=== PATIENT | male | born 1935 | race Caucasian/White ===

== ENCOUNTER 2018-03-18 12:44 | Inpatient (IN) | payer MEDICARE ==
[~2018-03-18] VITALS: Ht 182.9 cm; Wt 77.2 kg
[2018-03-18] VITALS (10 sets, daily range): BP systolic 98–136; BP diastolic 46–68
[~2018-03-18 12:44] MED LIST: atropine 0.1mg/ml 10ml syringe ONE; calcium chloride 100 MG/1 ML inj IV ONE
[2018-03-18] MEDS ORDERED: fentaNYL/PF 50MCG/1 ML 2ML syringe IV ONE (13:20)
[2018-03-18 13:41] LABS: BASOPHILS % (AUTO) 0.4 % (0-1); EOSINOPHILS # (AUTO) 0.1 X10'3 (0-0.9); EOSINOPHILS % (AUTO) 1.9 % (0-6); HEMATOCRIT 34.9 % (42.0-52.0); HEMOGLOBIN 12.1 g/dl (14.0-17.9); LYMPHOCYTES # (AUTO) 1.7 X10'3 (1.1-4.8); LYMPHOCYTES % (AUTO) 27.6 % (21-51); MEAN CORPUSCULAR HEMOGLOBIN 33.6 PG (27.0-31.0); MEAN CORPUSCULAR HGB CONC 34.6 % (33.0-36.5); MEAN CORPUSCULAR VOLUME 97.2 FL (78-98); MEAN PLATELET VOLUME 8.4 FL (7.4-10.4); MONOCYTES # (AUTO) 0.6 X10'3 (0-0.9); MONOCYTES % (AUTO) 9.9 % (2-12); NEUTROPHILS # (AUTO) 3.8 X10'3 (1.8-7.7); NEUTROPHILS % (AUTO) 60.2 % (42-75); PLATELET COUNT 123 X10'3 (140-440); WHITE BLOOD COUNT 6.3 X10'3 (4.5-11.0)
[2018-03-18 13:52] LABS: ALANINE AMINOTRANSFERASE 21 U/L (12-78); ALBUMIN 2.8 G/DL (3.4-5.0); ALBUMIN/GLOBULIN RATIO 0.8 (1.1-1.5); ALKALINE PHOSPHATASE 67 IU/L (46-116); ANION GAP 14 (8-16); ASPARTATE AMINO TRANSFERASE 17 U/L (10-37); BILIRUBIN,TOTAL 0.6 MG/DL (0.1-1.0); BLOOD UREA NITROGEN 27 MG/DL (7-18); BUN/CREATININE RATIO 19.1 (5.4-32.0); CALCIUM 7.3 MG/DL (8.5-10.1); CHLORIDE 110 MMOL/L (99-107); CREATININE 1.41 MG/DL (0.60-1.10); GLUCOSE 132 MG/DL (70-104); POTASSIUM 3.9 MMOL/L (3.5-5.1); SODIUM 142 MMOL/L (135-145); TOTAL PROTEIN 6.1 G/DL (6.4-8.2); eGFR 48 ML/MIN
[2018-03-18 13:58] LABS: MAGNESIUM 1.8 MG/DL (1.5-2.4)
[2018-03-18 14:00] LABS: ABG BASE EXCESS -13.3 mmol/L (-2.0-3.0); ABG HCO3 13.2 mmol/L (22.0-26.0); ABG PCO2 (T) 32.9 mmHg (35.0-48.0); ABG PH (T) 7.222 (7.350-7.450); ABG PO2 (T) 269.9 mmHg (83-108); ALLEN'S TEST Positive; FCOHb 0.1 % (0.5-1.5); FLOW 55 L/min; FMetHb 0.1 % (0.3-1.12); FO2Hb 98.8 % (94-100); MINUTE VOLUME 6 L/min; PEEP 5 cm H2O; RESPIRATORY RATE 14 b/min; TIDAL VOLUME 450 mL
[2018-03-18] MEDS ORDERED: rocuronium bromide 100mg/10ml (10mg/ml) injection IV ONE (14:00)
[2018-03-18] MEDS ORDERED: nitroGLYCERIN 0.4mg SUBLingual tab SL ONE (14:00)
[2018-03-18] MEDS ORDERED: heparin, porcine/D5W 25,000 units/250ml premix IV ONE (14:00)
[2018-03-18] MEDS ORDERED: etomidate 2mg/ml inj. ONE (14:00)
[2018-03-18] MEDS ORDERED: heparin 10,000 units/1 ML INJ ONE (14:00)
[2018-03-18] MEDS ORDERED: nitroGLYCERIN in D5W 50mg/250ml (Tridil) infusion IV ONE (14:00)
[2018-03-18] MEDS ORDERED: heparin 10,000 units/1 ML INJ IV ONE ×2 (14:10→15:15)
[2018-03-18] MEDS ORDERED: nitroGLYCERIN 0.4mg SUBLingual tab SL PRN (14:10)
[2018-03-18] MEDS ORDERED: metoprolol tartrate 1mg/ml inj IV ONE (14:10)
[2018-03-18] MEDS ORDERED: normal saline 1000ml 1,000 ML IV ONE ×3 (14:10)
[2018-03-18] MEDS ORDERED: heparin 10,000 units/1 ML INJ IV SCH (14:10)
[2018-03-18] MEDS ORDERED: MIDAZolam 5mg/ml 2ml vial IV ONE ×4 (14:25→17:25)
[2018-03-18] MEDS: nitroGLYCERIN-Tridil 50MG/D5W 250 ML IV PRN ×2 (15:07→15:12)
[2018-03-18] MEDS ORDERED: calcium gluconate inj. 1 GM in normal saline 100ml IV soln 90 ML IV ONE (16:00)
[2018-03-18 16:11] LABS: OXYGEN SATURATION (MIXED VEN) 47.3 % (60-80); PO2 MIXED VENOUS (TEMP COR) 29.1 mmHg (35-46)
[2018-03-18] MEDS ORDERED: magnesium 4gm in 100ml NS 100 ML IV PRN (16:25)
[2018-03-18] MEDS ORDERED: magnesium Cl slow-release 64mg tablet PO PRN (16:25)
[2018-03-18] MEDS ORDERED: magnesium hydroxide 30ml (MOM) UD suspension PO PRN (16:25)
[2018-03-18] MEDS ORDERED: morphine 4 MG/ML inj SYRINge IV PRN ×2 (16:25)
[2018-03-18] MEDS ORDERED: sodium phosphate inj. 15 MMOL in dextrose 5%-water 150 ML IV PRN (16:25)
[2018-03-18] MEDS ORDERED: potassium Cl 20 mEq SR tablet PO PRN ×2 (16:25)
[2018-03-18] MEDS ORDERED: Neutra Phos packet PO PRN (16:25)
[2018-03-18] MEDS ORDERED: ondansetron/PF 4mg/2ml inj IV PRN (16:25)
[2018-03-18] MEDS ORDERED: sodium bicarbonate (8.4%) 1 mEq/ml syringe IV ONE (16:25)
[2018-03-18] MEDS ORDERED: magnesium 1gm/100ml D5W IVPB 50 ML IV PRN (16:25)
[2018-03-18] MEDS ORDERED: acetaminophen 325mg tablet PO PRN ×3 (16:25→20:05)
[2018-03-18] MEDS ORDERED: sodium phosphate inj. 30 MMOL in dextrose 5%-water 250 ML IV PRN (16:25)
[2018-03-18] MEDS ORDERED: sodium bicarbonate (8.4%) inj. 100 MEQ in dextrose 5%-water 1,000 ML IV SCH (16:35)
[2018-03-18 16:45] LABS: PHOSPHORUS 3.7 MG/DL (2.3-4.5)
[2018-03-18] MEDS ORDERED: iohexol 350MG/ML 100ml bottle IV ONE (17:08)
[2018-03-18] MEDS ORDERED: LIDOcaine 1% w/EPI 1:100,000 30ml vial (MDV) ONE (17:08)
[2018-03-18] MEDS ORDERED: iohexol 350 MG/ML 50ML vial IV ONE (17:08)
[2018-03-18] MEDS: sodium bicarbonate (8.4%) inj. 150 MEQ in dextrose 5%-water 1,000 ML IV SCH (17:13)
[2018-03-18] MEDS ORDERED: midazolam 100mg in NS 100ml 100 ML IV PRN ×2 (17:50→19:16)
[2018-03-18] MEDS ORDERED: midazolam 2 mg/2 ml injection ONE (18:14)
[2018-03-18] MEDS ORDERED: DOBUTamine-DoBUTrex 500mg/D5W 250 ML IV ONE (18:20)
[2018-03-18] MEDS ORDERED: fentaNYL in normal saline/PF 1,000mcg/100ml bag IV PRN (19:20)
[2018-03-18] MEDS ORDERED: HYDROcodone/acetaminophen 5mg/325mg tablet PO PRN (20:00)
[2018-03-18] MEDS ORDERED: OXAZEpam 15mg capsule PO PRN (20:05)
[2018-03-18] MEDS ORDERED: HYDROcodone/acetaminophen 10/325mg tab PO PRN (20:05)
[2018-03-18] MEDS ORDERED: proCHLORperazine 10 MG/2 ml inj IV PRN (20:05)
[2018-03-18] MEDS: K, MAG and/or Phos replacement - Verify level? MC SCH (20:40)
[2018-03-18] MEDS: pantoprazole 40 MG vial IV SCH (20:40)
[2018-03-18] MEDS: FENTANYL-0.9 % NACL/PF 100 ML IV PRN (21:25)
[2018-03-19] VITALS (24 sets, daily range): BP systolic 56–122; BP diastolic 30–60
[2018-03-19] MEDS: sodium chloride 0.45% 1,000 ML IV SCH ×2 (00:20→05:41)
[2018-03-19 01:29] LABS: ALANINE AMINOTRANSFERASE 49 U/L (12-78); ALBUMIN 2.8 G/DL (3.4-5.0); ALBUMIN/GLOBULIN RATIO 0.9 (1.1-1.5); ALKALINE PHOSPHATASE 63 IU/L (46-116); ANION GAP 8 (8-16); ASPARTATE AMINO TRANSFERASE 95 U/L (10-37); BILIRUBIN,TOTAL 0.7 MG/DL (0.1-1.0); BLOOD UREA NITROGEN 26 MG/DL (7-18); BUN/CREATININE RATIO 24.8 (5.4-32.0); CALCIUM 7.8 MG/DL (8.5-10.1); CHLORIDE 110 MMOL/L (99-107); CREATININE 1.05 MG/DL (0.60-1.10); GLUCOSE 170 MG/DL (70-104); MAGNESIUM 1.7 MG/DL (1.5-2.4); PHOSPHORUS 3.2 MG/DL (2.3-4.5); SODIUM 139 MMOL/L (135-145); TOTAL CARBON DIOXIDE 20.7 MMOL/L (24-32); eGFR 67 ML/MIN
[2018-03-19] MEDS: sodium bicarbonate (8.4%) inj. 150 MEQ in dextrose 5%-water 1,000 ML IV SCH ×2 (03:19→10:29)
[2018-03-19] MEDS: DOBUTamine 2000 MCG/250ML BAG IV SCH ×2 (03:29→05:48)
[2018-03-19 04:14] LABS: BASOPHILS % (AUTO) 0.2 % (0-1); EOSINOPHILS % (AUTO) 0 % (0-6); HEMATOCRIT 35.1 % (42.0-52.0); LYMPHOCYTES % (AUTO) 10.8 % (21-51); MEAN CORPUSCULAR HEMOGLOBIN 33.4 PG (27.0-31.0); MEAN CORPUSCULAR HGB CONC 34.1 % (33.0-36.5); MEAN CORPUSCULAR VOLUME 97.9 FL (78-98); MEAN PLATELET VOLUME 8.4 FL (7.4-10.4); MONOCYTES # (AUTO) 0.8 X10'3 (0-0.9); MONOCYTES % (AUTO) 8.5 % (2-12); NEUTROPHILS # (AUTO) 7.3 X10'3 (1.8-7.7); NEUTROPHILS % (AUTO) 80.5 % (42-75); PLATELET COUNT 118 X10'3 (140-440); RED BLOOD COUNT 3.59 X10'6 (4.70-6.10); RED CELL DISTRIBUTION WIDTH 13.7 % (11.5-14.5); WHITE BLOOD COUNT 9.1 X10'3 (4.5-11.0)
[2018-03-19] MEDS ORDERED: amiodarone/D5 360MG/200ML BAG 200 ML IV ONE (04:19)
[2018-03-19] MEDS ORDERED: amiodarone 150mg/dext, iso-os 100 ML IV ONE ×2 (04:19→04:20)
[2018-03-19 04:25] LABS: INR 1.1 INR; PROTHROMBIN TIME 11.4 SECONDS (9.0-12.0)
[2018-03-19 04:26] LABS: ALANINE AMINOTRANSFERASE 51 U/L (12-78); ALBUMIN 2.7 G/DL (3.4-5.0); ALBUMIN/GLOBULIN RATIO 0.8 (1.1-1.5); ALKALINE PHOSPHATASE 60 IU/L (46-116); ANION GAP 9 (8-16); ASPARTATE AMINO TRANSFERASE 125 U/L (10-37); BILIRUBIN,TOTAL 0.6 MG/DL (0.1-1.0); BLOOD UREA NITROGEN 25 MG/DL (7-18); CALCIUM 7.6 MG/DL (8.5-10.1); CHLORIDE 109 MMOL/L (99-107); CREATININE 1.04 MG/DL (0.60-1.10); GLUCOSE 158 MG/DL (70-104); MAGNESIUM 1.7 MG/DL (1.5-2.4); POTASSIUM 3.7 MMOL/L (3.5-5.1); SODIUM 140 MMOL/L (135-145); TOTAL CARBON DIOXIDE 21.6 MMOL/L (24-32); TOTAL PROTEIN 6.1 G/DL (6.4-8.2); eGFR 68 ML/MIN
[2018-03-19 04:35] LABS: PARTIAL THROMBOPLASTIN TIME 78 SECONDS (22-32)
[2018-03-19] MEDS: amiodarone/D5 360MG/200ML BAG 200 ML IV SCH ×3 (04:35→10:29)
[2018-03-19 05:00] LABS: ABG BASE EXCESS -4.8 mmol/L (-2.0-3.0); ABG HCO3 18.8 mmol/L (22.0-26.0); ABG PCO2 (T) 31.2 mmHg (35.0-48.0); ABG PO2 (T) 199.6 mmHg (83-108); FCOHb 0.3 % (0.5-1.5); FMetHb 0.2 % (0.3-1.12); FO2Hb 98.5 % (94-100); MINUTE VOLUME 7 L/min; PATIENT TEMPERATURE 37.3; PEEP 5 cm H2O; RESPIRATORY RATE 10 b/min; RESPIRATORY RATE (OBSERVED) 13 b/min; TIDAL VOLUME 450 mL; TOTAL HEMOGLOBIN 12.8 G/dl (14.0-18.0)
[2018-03-19] MEDS: pantoprazole 40 MG vial IV SCH (07:57)
[2018-03-19] MEDS: FENTANYL-0.9 % NACL/PF 100 ML IV PRN (07:58)
[2018-03-19] MEDS: K, MAG and/or Phos replacement - Verify level? MC SCH (08:00)
[2018-03-19] MEDS ORDERED: enoxaparin 40mg/0.4ml syringe SUBCUT SCH (08:00)
[2018-03-19] MEDS ORDERED: morphine 10mg/0.5ml (conc. morphine) oral syringe PO PRN ×2 (09:05→09:10)
[2018-03-19] MEDS ORDERED: morphine 10mg/ml inj. IV PRN (09:05)
[2018-03-19] MEDS ORDERED: LORazepam 2 mg/ml vial IV PRN ×2 (09:10→18:00)
[2018-03-19] MEDS: morphine 10mg/ml inj. IV PRN ×4 (10:21→19:35)
[2018-03-19] MEDS: LORazepam 2 mg/ml vial IV PRN ×2 (13:30→15:30)
[2018-03-19] MEDS ORDERED: morphine 2 MG/ML inj. syringe ONE (17:18)
[2018-03-19] MEDS: mineral oil/petrolatum ophthal oint EACHEYE SCH (19:33)
[2018-03-19] MEDS ORDERED: docusate sod 100mg capsule PO SCH (20:00)
[2018-03-20] VITALS: BP 79/36
[2018-03-20] MEDS: morphine 10mg/ml inj. IV PRN ×5 (00:54→22:54)
[2018-03-20] MEDS: mineral oil/petrolatum ophthal oint EACHEYE SCH ×4 (02:00→20:00)
[2018-03-20 02:30] VITALS: BP 72/40
[2018-03-20 07:51] VITALS: BP 66/33
[2018-03-20] MEDS: morphine 4 MG/ML inj SYRINge IV SCH ×3 (12:28→20:51)
[2018-03-21] MEDS: morphine 4 MG/ML inj SYRINge IV SCH ×3 (00:04→07:59)
[2018-03-21] MEDS: morphine 10mg/ml inj. IV PRN ×3 (01:54→05:43)
[2018-03-21] MEDS: mineral oil/petrolatum ophthal oint EACHEYE SCH ×2 (02:00→08:00)
[2018-03-21 08:04] VITALS: BP 58/24
== END 2018-03-21 10:06 | disposition expired | DRG 208 ==
LOC: ER 12:46 → ED HOLD 16:21 → ICU 2S 19:22 → SUR 3N 03-20 00:56
PROVIDERS: ADMIT Internal Medicine Critical Care Medicine; ATTEND Internal Medicine Critical Care Medicine
PROC: 4A023N7 Measurement of Cardiac Sampling and Pressure, Left Heart, Percutaneous Approach (ICD-10-PCS; principal; 2018-03-18)
PROC: B2111ZZ Fluoroscopy of Multiple Coronary Arteries using Low Osmolar Contrast (ICD-10-PCS; 2018-03-18)
PROC: B2181ZZ Fluoroscopy of Left Internal Mammary Bypass Graft using Low Osmolar Contrast (ICD-10-PCS; 2018-03-18)
PROC: B2131ZZ Fluoroscopy of Multiple Coronary Artery Bypass Grafts using Low Osmolar Contrast (ICD-10-PCS; 2018-03-18)
PROC: 5A1223Z Performance of Cardiac Pacing, Continuous (ICD-10-PCS; 2018-03-18)
PROC: 02H633Z Insertion of Infusion Device into Right Atrium, Percutaneous Approach (ICD-10-PCS; 2018-03-18)
PROC: 5A1935Z Respiratory Ventilation, Less than 24 Consecutive Hours (ICD-10-PCS; 2018-03-18)
PROC: 0BH17EZ Insertion of Endotracheal Airway into Trachea, Via Natural or Artificial Opening (ICD-10-PCS; 2018-03-18)
DX: J96.00 Acute respiratory failure, unspecified whether with hypoxia or hypercapnia (principal); I21.19 ST elevation (STEMI) myocardial infarction involving other coronary artery of inferior wall; G93.40 Encephalopathy, unspecified; I25.10 Atherosclerotic heart disease of native coronary artery without angina pectoris; E86.0 Dehydration; Z51.5 Encounter for palliative care; Z66 Do not resuscitate; Z91.14 Patient's other noncompliance with medication regimen; Z95.1 Presence of aortocoronary bypass graft
CPT/HCPCS: 33210; 36415; 36600; 71045; 80053; 82803; 82810; 82948; 83605; 83735; 83880; 84100; 84439; 84443; 84484; 85018; 85025; 85610; 85730; 93005; 93459; 94002; 94003; 94760; 96361; 96374; 96375; 99152; 99153; 99291; 99292; A6257; A6449; C1758; C1769; C9113; J0282; J0461; J0610; J1250; J1644; J2060; J2250; J2270; J3010; J3490; J7030; Q9967